=== PATIENT | female | born 1980 | race African-American/Black ===

== ENCOUNTER 2016-09-28 10:33 | Day surgery (SDC) | payer MEDICAID ==
[~2016-09-28] VITALS: Ht 160 cm; Wt 57.6 kg
[~2016-09-28 10:33] MED LIST: ACETAMINOPHEN PEG; ACETAMINOPHEN325 MG PO; ACIDOPHILU4 PEG; ALBUTERO3 IN; ARTIFI TEAR1 OU; ATIVAN2 MG/M1 IJ; BACLOFEN10 MG PEG; BISACODYL10 M2 PR; CHILD ADVI100 MG/51 PO; CLEARLAX PEG; COLACE SYR100 MG/UDC PEG; DEPAKENE 2250 MG/5 M PEG; DIAZEPAM10 MG PEG; DIMAPHEN PO; ELIXOPHYLL80 MG/15 M PO; ENEMA READY-TO-1 ENE PR; FERREX 150150 MG PEG; FEXOFENADINE H180 MG PEG; GAS RELIEF PEG; GERI-LANTA PEG; GLUCAGON1 MG IJ; HYDROCHLOROT12.5 MG PO; HYDROXYZ HCL10 MG PEG; IPRATROPIUM BR0.02 % NEB; LEVETIRACET100 MG/M1 PEG; MELATONIN5 M5 PEG; MIDODRINE5 MG PEG; MILK OF MAGNESI1 SUS PEG; MULTIVITAM PEG; OMEPRAZOLE20 M2 PO; Q-DRYL PEG; RANITIDINE75 MG/5 ML PEG; RISPERDAL M1 MG PO; SYMBICORT1 AE1 IN; VIMPAT200 MG PEG; VITAMIN C500 MG/5 M PEG; [UNRECOGNIZED DRUG - OTHER] PEG; [UNRECOGNIZED DRUG - OTHER] PEG
[2016-09-28 12:50] VITALS: BP 100/59
== END 2016-09-28 12:40 | disposition home or self-care (01) | DRG 392 ==
LOC: ENDO 10:33 → ORM 14:25 → ENDO 14:25 → ORM 15:55 → EDBD 15:55 → ORM 16:00
PROVIDERS: ATTEND Internal Medicine Gastroenterology
PROC: 0DJ08ZZ Inspection of Upper Intestinal Tract, Via Natural or Artificial Opening Endoscopic (ICD-10-PCS; principal; 2016-09-28)
DX: R13.10 Dysphagia, unspecified (principal); Z99.11 Dependence on respirator [ventilator] status; F03.90 Unspecified dementia, unspecified severity, without behavioral disturbance, psychotic disturbance, mood disturbance, and anxiety; K62.5 Hemorrhage of anus and rectum; D50.9 Iron deficiency anemia, unspecified; K29.80 Duodenitis without bleeding; K29.70 Gastritis, unspecified, without bleeding; Z99.3 Dependence on wheelchair; Z93.0 Tracheostomy status; Z93.1 Gastrostomy status